=== PATIENT | female | born 1955 | race Caucasian/White ===

== ENCOUNTER 2018-05-06 13:16 | Inpatient (IN) ==
[2018-05-06] MEDS ORDERED: *HR* Heparin 5,000 UNIT/ML VIAL IVP ONE (16:16)
[2018-05-06] MEDS ORDERED: *HR* Heparin 5,000 UNIT/ML VIAL IVP PRN ×2 (16:16)
--- NOTE | 2018-05-06 16:23 | Emergency Department Note ---
Disposition Clinical Impression: DVT (deep venous thrombosis) Qualifiers: DVT location: lower extremity Affected thrombotic vein of extremity: femoral Chronicity: acute Laterality: left Qualified Code(s): I82.412 - Acute embolism and thrombosis of left femoral vein Disposition: Admitted As Inpatient Extremity Problem HPI - General Chief complaint: ED Extremity Problem,Nontraumatic Stated complaint: Possible DVT left leg Time Seen by Provider: 05/06/18 15:34 Source: patient Limitations: no limitations Nursing Notes Reviewed: Yes Vital Signs Reviewed: Yes - History of Present Illness HPI Narrative: Patient presents today for evaluation of swelling and pain in the left leg. She has appropriate previous history of DVTs. She had a DVT approximately 2 years ago that was treated with Cymbalta. She has been following with the hematology clinic and was told that she could come off this medicine. 2 weeks after coming off serology she developed another DVT which she has been on Coumadin and attempted bridge with Lovenox shots. Over last weekend she ran out of Lovenox shots and her insurance would no longer prescribe these. She was told that she was to continue with the Coumadin clinic. She follows with Coumadin clinic today and her INR was 1.5. Patient's leg symptoms started approximately 2 days ago with worsening pain and swelling. Patient's leg has swelling through the calf as well as the upper thigh. Mild associated erythema and tenderness to palpation along the deep vascular system. Neurovascularly intact distally. Patient likely does have a DVT. Further investigation with DVT study will be performed and disposition is pending. Pain Scale: 8 - Related Data Home Medications Medication Instructions Recorded Confirmed Oxybutynin Chloride [Ditropan Xl] 5 mg PO DAILY 07/16/16 05/06/18 Escitalopram [Lexapro] 20 mg PO DAILY 07/23/17 05/06/18 Losartan Potassium [Cozaar] 25 mg PO DAILY 07/23/17 05/06/18 Pantoprazole Sodium [Protonix] 40 mg PO DAILY 07/23/17 05/06/18 Pramipexole Di-HCl [Pramipexole 0.5 mg PO HS 05/06/18 05/06/18 Dihydrochloride] Turmeric Root Extract [Turmeric] 500 mg PO DAILY 05/06/18 05/06/18 Warfarin [Coumadin] 5 mg PO SUTUWETHFR 05/06/18 05/06/18 Warfarin [Coumadin] 7.5 mg PO MOSA 05/06/18 05/06/18 Allergies Allergy/AdvReac Type Severity Reaction Status Date / Time Sulfa (Sulfonamide AdvReac Nausea Verified 05/06/18 16:41 Antibiotics) Review of Systems: As Per HPI Constitutional: Denies: fever, chills Cardiovascular: Denies: chest pain, palpitations, dyspnea on exertion Respiratory: Denies: cough, dyspnea, wheezes Gastrointestinal: Denies: abdominal pain, nausea, vomiting Genitourinary: Denies: urgency, dysuria, frequency Musculoskeletal: Reports: other (Left leg pain) Integumentary: Reports: other (Swelling and erythema of the left leg) Neurological: Denies: headache, weakness Past Medical History - Past Medical History Medical history: Reports: arthritis, DVT, GERD, hypertension, osteoporosis, other Surgical history: Reports: appendectomy, cataract (Eye surgery. Cataract removal.), cholecystectomy, hysterectomy, orthopedic, other ( Flexible sigmoidoscopy. right carpal tunnel release. Left wrist endoscopic carpal tunnel release. Trigger finger release, thumb. Left thumb carpal metacarpal arthroplasty with flexor carpi radial suspension. 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 Distal dorsalis pedis and cap refill intact and symmetric bilaterally. Skin: See extremities left lower extremity otherwise normal without rash or abrasion or lesion. Psych: Appropriate mood and affect Neuro: Awake and alert - General Limitations: no limitations General appearance: alert, in no apparent distress Course - Reevaluation(s) Reevaluation #1: DVT study for both superficial and deep thrombus throughout the upper thigh including nonvisualization of the most proximal portion. Patient has no other symptoms in her lower extremity. No abdominal pain or chest pain or shortness of breath. Is not having palpitations. This point patient is subtherapeutic on her INR and is unable to obtain other anticoagulations for home use as insurance has previously denied these. She will be placed on a heparin drip and admitted to the hospital for further evaluation and management. - Consultations Consultation #1: Discussed with hospitalist. Patient accepted for admission. Vital Signs Temperature 98.3 F 05/06/18 13:18 Pulse Rate 81 05/06/18 13:18 Respiratory Rate 16 05/06/18 13:18 Blood Pressure 147/74 05/06/18 13:18 O2 Sat by Pulse Oximetry 94 05/06/18 13:18 Temperature 99.6 F 05/06/18 17:45 Pulse Rate 81 05/06/18 15:41 Respiratory Rate 16 05/06/18 17:45 Blood Pressure 150/77 05/06/18 17:45 O2 Sat by Pulse Oximetry 99 05/06/18 17:45 Oxygen Delivery Oxygen Delivery Room Air Extremity Problem, Nontraumati - Medical Records Medical records reviewed: Yes I reviewed the patient's medical records. - Lab Data Lab results reviewed: Yes I reviewed the patient's lab results. Result diagrams: 05/06/18 16:39 05/06/18 16:39 Lab Results 05/06/18 05/06/18 05/06/18 Range/Units 16:39 16:39 16:49 WBC 6.3 (4.3-11.1) K/mcL RBC 5.41 H (3.82-4.97) M/mcL Hgb 14.1 (11.5-15.4) g/dL Hct 45.0 H (35.3-44.9) % MCV 83.2 (83.0-100.0) fL MCH 26.1 L (28.0-33.3) pg MCHC 31.3 L (31.6-35.5) g/dL RDW 14.0 (11.5-14.5) % Plt Count 195 (140-400) K/mcL MPV 10.8 (9.4-12.4) fL PT 17.2 H (9.4-12.1) Seconds INR 1.5 APTT 34.7 (26.0-36.0) Seconds Heparin Anti-Xa, Unfract 0.09 L (0.30-0.70) IU/mL Sodium 138 (136-145) mEq/L Potassium 3.9 (3.5-5.1) mEq/L Chloride 106 (98-107) mEq/L Carbon Dioxide 23 (23-29) mEq/L BUN 15 (8-23) mg/dL Creatinine 0.78 (0.60-1.20) mg/dL Est GFR ( Amer) > 60 (> 60) Est GFR (Non-Af Amer) > 60 (> 60) BUN/Creatinine Ratio 19 (6-26) Glucose 96 (70-105) mg/dL Calculated Osmolality 287 (280-300) Calcium 9.9 (8.6-10.3) mg/dL Troponin I < 0.03 (< 0.04) ng/mL - EKG Data EKG attestation: Yes I reviewed and interpreted this EKG. EKG results narrative: Sinus rhythm with ventricular rate of 63. OR interval 172. QRS 79. QTC 384. Patient has no significant ST elevations or depressions. EKG unchanged from previous of 07/08/16
[2018-05-06 16:53] LABS: Hemoglobin 14.1 g/dL (11.5-15.4); Mean Corpuscular HGB Conc 31.3 g/dL (31.6-35.5); Mean Corpuscular Hemoglobin 26.1 pg (28.0-33.3); Mean Corpuscular Volume 83.2 fL (83.0-100.0); Mean Platelet Volume 10.8 fL (9.4-12.4); Platelet Count 195 K/mcL (140-400); Red Blood Count 5.41 M/mcL (3.82-4.97)
[2018-05-06 17:07] LABS: Activated Partial Thrombo Time 34.7 Seconds (26.0-36.0)
[2018-05-06] MEDS ORDERED: Naloxone 0.4 MG/ML INJ IVP PRN (17:11)
[2018-05-06 17:12] LABS: Heparin anti-factor XA UFH 0.09 IU/mL (0.30-0.70); INR 1.5; Prothrombin Time 17.2 Seconds (9.4-12.1)
[2018-05-06 17:17] LABS: BUN/Creatinine Ratio 19 (6-26); Blood Urea Nitrogen 15 mg/dL (8-23); Calcium 9.9 mg/dL (8.6-10.3); Carbon Dioxide 23 mEq/L (23-29); Chloride 106 mEq/L (98-107); Glucose 96 mg/dL (70-105); Osmolality,Calculated 287 (280-300); Potassium 3.9 mEq/L (3.5-5.1); Sodium 138 mEq/L (136-145); Troponin I < 0.03 ng/mL (< 0.04); eGFR For Non-African Americans > 60 (> 60)
--- NOTE | 2018-05-06 17:25 | Internal Med History&Physical ---
<Enma Rizo Negrita - Last Filed: 05/06/18 18:44> Date of Encounter: 05/06/18 Time of Encounter: 17:24 Internal Medicine - H&P: HPI Chief complaint: DT Left leg Admitted From: Home Plans for Post Hospital Care: Home History of present illness: Ms. Hernandez is a 63 year old female with history of dvt left leg, htn, and OA. The patient here today with swelling and pain in her left leg. The patient was taking lovenox and warfarin at home and it was discontinued on Wednesday by insurance denial. The patient has been worked up by hematology/oncology, in the past. Prior to that the patient was taking Xarelto. The Xarelto was stopped to trial the lovenox and warfarin. The lovenox and warfarin was never able to reach therapeutic levels and her provider tried to put her back on the Xarelto with no success with her insurance company. Today the patient noted an increase in swelling and thought she might have another clot. The ED found the patient to have a clot. Heparin drip was started due the patient INR of 1.5, subtherapeutic. I will consult with 7th grade social studies teacher regarding medication use and insurance. Past Med Surg Social Fam HX - Past Medical History Medical history: arthritis, DVT, GERD, hypertension, osteoporosis, other Psychiatric history: anxiety, depression - Past Surgical History Surgical History: appendectomy, cataract (Eye surgery. Cataract removal.), cholecystectomy, hysterectomy, orthopedic, other ( Flexible sigmoidoscopy. right carpal tunnel release. Left wrist endoscopic carpal tunnel release. Trigger finger release, thumb. Left thumb carpal metacarpal arthroplasty with flexor carpi radial suspension. ), other (Colonoscopy.) Additional surgical history: carpal tunnel surgeries x 2 - Social History Smoking Status: Never smoker Smokeless Tobacco Status: No Alcohol use: none Drug use: none - Family History Father Living Status: Hx Family Respiratory Disorders: Yes Mother Living Status: Hx Family Cardiac Disorders: Yes Hx Family Endocrine Disorder: Yes Hx Family Neurologic Disorders: Yes Internal Medicine - H&P: Meds Oxybutynin Chloride [Ditropan Xl] 5 mg PO DAILY 07/16/16 [History] Escitalopram [Lexapro] 20 mg PO DAILY 07/23/17 [History] Losartan Potassium [Cozaar] 25 mg PO DAILY 07/23/17 [History] Pantoprazole Sodium [Protonix] 40 mg PO DAILY 07/23/17 [History] Pramipexole Di-HCl [Pramipexole Dihydrochloride] 0.5 mg PO HS 05/06/18 [History] Turmeric Root Extract [Turmeric] 500 mg PO DAILY 05/06/18 [History] Warfarin [Coumadin] 5 mg PO SUTUWETHFR 05/06/18 [History] Warfarin [Coumadin] 7.5 mg PO MOSA 05/06/18 [History] 3 Allergy/AdvReac Type Severity Reaction Status Date / Time Sulfa (Sulfonamide AdvReac Nausea Verified 05/06/18 16:41 Antibiotics) All Systems PM: A 10-system review of systems was performed and is negative for pertinent findings except as documented above in the HPI. - Constitutional Constitutional: no chills, no fever(s), no night sweats - EENT Eyes: no change in vision, no discharge, no pain, no photophobia Ears: no ear discharge, no ear pain, no tinnitus Nose, mouth and throat: no dysphagia, no nasal discharge, no neck pain, no sore throat - Cardiovascular Cardiovascular ROS IM: no chest pain, no diaphoresis, no dyspnea, no lightheadedness, no palpitations, no syncope - Respiratory Respiratory: no cough, no dyspnea, no wheezing, no excessive phlegm production - Gastrointestinal Gastrointestinal: no abdominal pain, no diarrhea, no hematemesis, no hematochezia, no melena, no nausea, no vomiting - Genitourinary Genitourinary: no change in urinary stream, no dysuria, no flank pain, no hematuria - Musculoskeletal Musculoskeletal ROS IM: no numbness, no tingling - Integumentary Integumentary IM: other (Pale, left leg), no rash, no unusual bruising - Neurological Neurological ROS: no confusion, no convulsions, no focal weakness, no numbness, no tingling, no tremor(s) - Hematologic/Lymphatic Hematologic/Lymphatic: no easy bruising - Constitutional Vitals: Temp Pulse Resp BP Pulse Ox 98.3 F 81 16 147/74 94 05/06/18 15:41 05/06/18 15:41 05/06/18 15:41 05/06/18 15:41 05/06/18 15:41 General appearance: Present: A&O X 3, answers questions appropriately - Head Head exam: Present: atraumatic, normocephalic - Eye Eye exam: Present: PERRL, conjuntiva pink, sclera anicteric Pupils: Present: PERRL - Neck Neck exam general surgery: Present: supple, trachea midline. Absent: lymphadenopathy - Respiratory Respiratory exam: Present: CTAB. Absent: accessory muscle use, rales, rhonchi, wheezes - Cardiovascular Cardiovascular exam: Present: RRR, +S1, +S2. Absent: diastolic murmur, gallop, rubs, systolic murmur - GI/Abdominal GI/Abdominal exam: Present: normal bowel sounds, soft, no peritoneal signs. Absent: distended, tenderness - Extremities Exam Extremities exam: Present: normal capillary refill, pedal edema, tenderness ( Color splotchy), warm, radial pulses palpable and symmetrical. Absent: calf tenderness, cyanotic - Neurological Exam Neurological exam: Present: CN II-XII intact, oriented X3, no focal deficits. Absent: pronater drift, facial droop, speech deficit - Skin Skin exam: Present: dry, intact Internal Med - H&P Results - Labs CBC & Chem 7: 05/06/18 16:39 05/06/18 16:39 - Assessment and plan (1) DVT (deep venous thrombosis) Current Visit: Yes Status: Acute Assessment and plan: Heparin drip Circulation checks PT/INR with heparin protocol Qualifiers: DVT location: lower extremity Affected thrombotic vein of extremity: femoral Chronicity: acute Laterality: left Qualified Code(s): I82.412 - Acute embolism and thrombosis of left femoral vein (2) Hypertension Current Visit: No Status: Chronic Assessment and plan: Bp is controlled Continue home meds. Qualifiers: Hypertension type: essential hypertension Qualified Code(s): I10 - Essential (primary) hypertension (3) Osteoarthritis involving multiple joints on both sides of body Current Visit: No Status: Chronic Assessment and plan: Chronic disease. Will manage with home medications - Time Spent With Patient Total time spent is greater than 50% in coordination of care (as documented) at patient's floor/unit and/or counseling patient: <WillieRaheem - Last Filed: 05/06/18 18:52> Date of Encounter: 05/06/18 Internal Medicine - H&P: HPI History of present illness: Ms. Hernandez is a 63 year old female All Systems PM: A 10-system review of systems was performed and is negative for pertinent findings except as documented above in the HPI. - Constitutional Vitals: Temp Pulse Resp BP Pulse Ox 99.6 F 81 16 150/77 99 05/06/18 17:45 05/06/18 15:41 05/06/18 17:45 05/06/18 17:45 05/06/18 17:45 Internal Med - H&P Results - Labs CBC & Chem 7: 05/06/18 16:39 05/06/18 16:39 - Attending Attestation I have seen and examined the patient with Enma Rizo and agree with his/her assessment and plan. 63-year-old female with history of DVT presented with another episode of left leg swelling. Her history goes back 2 years when she was first diagnosed with DVT and was placed on xarelto initially. She was doing well so xarelto was d/brannon by hematology. Unfortunately she developed another episode of DVT while off on Xarelto therefore she was placed back on xarelto which insurance denied. Thereafter, she was placed on Lovenox and warfarin but Lovenox was also not covered by insurance and she had wide fluctuation off INR on warfarin. Exam shows diffusely swollen left-leg. DVT scan positive with large amount of clot burden all the way to femoral vein. She was placed on heparin drip which we will continue overnight. financial services education consultant consulted to navigate through the anticoagulation medication. Raheem Tapia MD - Time Spent With Patient Total time spent is greater than 50% in coordination of care (as documented) at patient's floor/unit and/or counseling patient:
[2018-05-06] MEDS ORDERED: *HR* FentaNYL (PF) 100 MCG/2 ML VIAL IVP ONE (17:27)
[2018-05-06] MEDS: Heparin 25,000 UNIT/500 ML D5W 25,000 UNIT/500 ML BAG IVC SCH (17:28)
[2018-05-06] MEDS ORDERED: Acetaminophen 325 MG TABLET PO PRN (23:26)
[2018-05-06] MEDS: *HR* HYDROcodone/Acet 5/325 mg TABLET PO PRN (23:49)
[2018-05-07 01:03] LABS: Basophils % 0.4 %; Eosinophils # 0.1 K/mcL (0.0-0.6); Eosinophils % 2.2 %; Immature Granulocytes % 0.2 % (0-4); Lymphocytes # 1.5 K/mcL (0.6-4.6); Lymphocytes % 30.1 %; Mean Corpuscular HGB Conc 31.9 g/dL (31.6-35.5); Mean Corpuscular Hemoglobin 26.2 pg (28.0-33.3); Mean Corpuscular Volume 82.2 fL (83.0-100.0); Mean Platelet Volume 10.7 fL (9.4-12.4); Monocytes # 0.6 K/mcL (0.0-1.3); Neutrophils # 2.9 K/mcL (1.6-8.9); Platelet Count 168 K/mcL (140-400); Red Cell Distribution Width 13.9 % (11.5-14.5); Segmented Neutrophils % 56.1 %
[2018-05-07 01:07] LABS: Hemoglobin 11.8 g/dL (11.5-15.4)
[2018-05-07 01:14] LABS: BUN/Creatinine Ratio 20 (6-26); Blood Urea Nitrogen 16 mg/dL (8-23); Calcium 9.1 mg/dL (8.6-10.3); Carbon Dioxide 24 mEq/L (23-29); Chloride 105 mEq/L (98-107); Glucose 136 mg/dL (70-105); Osmolality,Calculated 287 (280-300); Potassium 3.9 mEq/L (3.5-5.1); Sodium 137 mEq/L (136-145); eGFR For Non-African Americans > 60 (> 60)
[2018-05-07] MEDS: *HR* HYDROcodone/Acet 5/325 mg TABLET PO PRN ×2 (08:16→15:04)
[2018-05-07] MEDS: (Turmeric Root Extract [Turmeric] 500 MG) PO SCH (08:17)
--- NOTE | 2018-05-07 14:53 | Internal Med Progress Note ---
Date of Encounter: 05/07/18 Time of Encounter: 14:50 - Assessment and plan (1) Deep vein thrombosis (DVT) of iliac vein of left lower extremity Current Visit: No Status: Acute Assessment and plan: Seen in the left distal iliac, left common femoral, left superficial femoral and the left great saphenous above-knee on Doppler ultrasound. Patient has recurrent DVT. First episode 2 years back and general to was restarted. Patient has been following beater dumper who did a stop after completion of treatment but patient has second episode a few weeks later in the same lower extremity therefore considered to his start Lovenox and warfarin but insurance does not cover Lovenox and her INR was unstable on warfarin. Patient has third episodes newly diagnosed left lower extremity DVT and is thrombosis-IV heparin was restarted. Jose also discuss with beater dumper about further management Qualifiers: Chronicity: acute Qualified Code(s): I82.422 - Acute embolism and thrombosis of left iliac vein (2) Hypertension Current Visit: No Status: Chronic Assessment and plan: Stable. Continue home medicine Qualifiers: Hypertension type: essential hypertension Qualified Code(s): I10 - Essential (primary) hypertension (3) Obesity (BMI 30.0-34.9) Current Visit: No Status: Chronic Assessment and plan: Diet and exercise - Time Spent With Patient Total time spent is greater than 50% in coordination of care (as documented) at patient's floor/unit and/or counseling patient: - Subjective Interval history: No new complaint. Left leg pain better. Review the lab Patient denies fever chills nausea vomiting headache dizziness chest pain shortness of breath abdominal pain urinary bowel complaint - Constitutional Vitals: Temp Pulse Resp BP Pulse Ox 98.3 F 67 16 123/62 93 05/07/18 11:13 05/07/18 11:13 05/07/18 11:13 05/07/18 11:13 05/07/18 11:13 General appearance: Present: A&O X 3, answers questions appropriately Exam: General appearance: No acute distress, A&O X 3 Head exam: Atraumatic Eye exam: EOMI, PERRLA ENT exam: Moist oral mucosa Neck nontender, supple Respiratory exam: Clear to auscultation bilaterally Cardiovascular exam: Regular rate and rhythm, no systolic murmur Abdominal exam: Soft, nontender, nondistended, positive bowel sounds Extremities exam: Left lower extremity-Homans sign positive with mild swelling Skin-no rash, warm, dry, intact Neurological exam: Alert, awake, oriented 3, CN II-XII intact, no focal deficits. No facial droop. Normal speech. Internal Medicine: Result - Labs CBC & Chem 7: 05/07/18 00:42 05/07/18 00:42 Labs: Short CBC 05/07/18 Range/Units 00:42 WBC 5.1 (4.3-11.1) K/mcL Hgb 11.8 D (11.5-15.4) g/dL Hct 37.0 (35.3-44.9) % Plt Count 168 (140-400) K/mcL Neutrophils # 2.9 (1.6-8.9) K/mcL BMP 05/07/18 00:42 Sodium 137 Potassium 3.9 Chloride 105 Carbon Dioxide 24 BUN 16 Creatinine 0.81 Glucose 136 H Calcium 9.1 - ABG Interpretation ABG results: PT/INR, D-dimer PT 17.2 Seconds (9.4-12.1) H 05/06/18 16:49 Consult Discharge Plan - Plan Referrals: Cindy Lester, CREW LEADER/CONTROL ROOM OPERATOR [Primary Care Provider] -
[2018-05-07] MEDS: Heparin 25,000 UNIT/500 ML D5W 25,000 UNIT/500 ML BAG IVC SCH (17:17)
--- NOTE | 2018-05-07 17:23 | Oncology Inp Consult Note ---
Date of Encounter: 05/07/18 Time of Encounter: 15:00 Assessment and Plan (1) DVT (deep venous thrombosis) Status: Acute Assessment and plan: Patient has a diagnosis of deep venous thrombosis in the left distal iliac, common femoral superficial femoral, saphenous veins since March 2018, presented with swelling worsening pain, INR was 1.5, she started on intravenous heparin. Patient has high co-pays with newer anticoagulants, low monitor weight heparin which she has discontinued. Start patient on Coumadin continue heparin until INR therapeutic, outpatient discharge on Coumadin with a targeted INR of 2-2.5. Subsequently she can follow up with Coumadin clinic. Hypercoagulable workup performed before was negative, patient still needs to be on lifelong anti-coagulation, be discussed risk benefits of long-term antiplatelet coagulation with patient. Patient and her family, friends were discussed with double plan and they are agreeable. Qualifiers: DVT location: lower extremity Affected thrombotic vein of extremity: femoral Chronicity: acute Laterality: left Qualified Code(s): I82.412 - Acute embolism and thrombosis of left femoral vein - Data of Consult Requesting Physician: Raheem Tapia MD Primary Care Provider: Cindy Lester CNP - Consult Narrative Reason for consult: DVT recurrent left lower ext History of present illness: Ms. Hernandez is a 63 year old female who was initially on Xarelto for left lower extremity -iliac/femoral deep venous thrombosis, diagnosed and started on treatment outside at [facility], -06/26. She subsequently had a Doppler study in January 2018 that did not show blood clots, patient had difficulty with coverage hypercoagulable workup was negative that was done on anti-coagulation, patient decided to stop anticoagulation. On 03/28 she developed left lower ext swelling and pain--she was noted to have acute left iliac, common femoral and superficial femoral vein thrombosis. She did not have coverage for eliquis she was put on coumadin by coumadin clinic. Patient had a INR of 1.2, increased to 1.5, according to her Coumadin clinic was recommending her to stay on Lovenox, increase Coumadin slowly as she became supratherapeutic with an INR of 5 during this process. She however did not have any bleeding episodes at that time. She came to the ER 2017 with left lower extremity pain and swelling. Venous Doppler showed similar findings to March 2018 she has left distal iliac, common femoral superficial femoral vein thrombosis. She is started on heparin. Hematology consulted for recommendations regarding anticoagulation. She denies any shortness of breath she feels very fatigued. Review of systems is otherwise negative. Past Med Surg Social Fam HX - Past Medical History Medical history: arthritis, DVT, GERD, hypertension, osteoporosis, other Psychiatric history: anxiety, depression - Past Surgical History Surgical History: appendectomy, cataract (Eye surgery. Cataract removal.), cholecystectomy, hysterectomy, orthopedic, other ( Flexible sigmoidoscopy. right carpal tunnel release. Left wrist endoscopic carpal tunnel release. Trigger finger release, thumb. Left thumb carpal metacarpal arthroplasty with flexor carpi radial suspension. ), other (Colonoscopy.) Additional surgical history: carpal tunnel surgeries x 2 - Social History Smoking Status: Never smoker Smokeless Tobacco Status: No Alcohol use: none Drug use: none - Family History Father Living Status: Hx Family Respiratory Disorders: Yes Mother Living Status: Age at : 66 Cause of : stroke Hx Family Cardiac Disorders: Yes Hx Family Endocrine Disorder: Yes Hx Family Neurologic Disorders: Yes Medications and Allergies Oxybutynin Chloride [Ditropan Xl] 5 mg PO DAILY 07/16/16 [History] Escitalopram [Lexapro] 20 mg PO DAILY 07/23/17 [History] Losartan Potassium [Cozaar] 25 mg PO DAILY 07/23/17 [History] Pantoprazole Sodium [Protonix] 40 mg PO DAILY 07/23/17 [History] Pramipexole Di-HCl [Pramipexole Dihydrochloride] 0.5 mg PO HS 05/06/18 [History] Turmeric Root Extract [Turmeric] 500 mg PO DAILY 05/06/18 [History] Warfarin [Coumadin] 5 mg PO SUTUWETHFR 05/06/18 [History] Warfarin [Coumadin] 7.5 mg PO MOSA 05/06/18 [History] 3 Allergy/AdvReac Type Severity Reaction Status Date / Time Sulfa (Sulfonamide AdvReac Nausea Verified 05/06/18 16:41 Antibiotics) Review of systems: as in HPI Oncology - Exam - Constitutional Vitals: Temp Pulse Resp BP Pulse Ox 98.3 F 80 16 105/76 94 05/07/18 15:45 05/07/18 15:45 05/07/18 15:45 05/07/18 15:45 05/07/18 15:45 General appearance: no acute distress - Head Head exam: Present: atraumatic, normal inspection - Eye Eye exam: Present: sclera anicteric - ENT ENT exam: Present: normal oropharynx - Neck Neck exam: Present: full ROM - Respiratory Respiratory exam: Present: CTAB - Cardiovascular Cardiovascular exam: Present: +S1, +S2 - GI/Abdominal GI/Abdominal exam: Present: normal bowel sounds, soft - Extremities Exam Additional comments: left thigh min swelling. - Neurological Exam Neurological exam: Present: alert, CN II-XII intact, oriented X3, no focal deficits - Psychiatric Psychiatric exam: Present: normal affect Oncology - Results Labs: 3 05/07/18 05/07/18 05/07/18 07:48 00:42 00:42 WBC RBC Hgb Hct MCV MCH MCHC RDW Plt Count MPV Immature Gran % Seg Neutrophils % Lymphocytes % Monocytes % Eosinophils % Basophils % Neutrophils # Lymphocytes # Monocytes # Eosinophils # Basophils # Heparin Anti-Xa, Unfract 0.61 0.60 Sodium 137 Potassium 3.9 Chloride 105 Carbon Dioxide 24 BUN 16 Creatinine 0.81 Est GFR ( Amer) > 60 Est GFR (Non-Af Amer) > 60 BUN/Creatinine Ratio 20 Glucose 136 H Calculated Osmolality 287 Calcium 9.1 3 05/07/18 00:42 WBC 5.1 RBC 4.50 Hgb 11.8 D Hct 37.0 MCV 82.2 L MCH 26.2 L MCHC 31.9 RDW 13.9 Plt Count 168 MPV 10.7 Immature Gran % 0.2 Seg Neutrophils % 56.1 Lymphocytes % 30.1 Monocytes % 11.0 Eosinophils % 2.2 Basophils % 0.4 Neutrophils # 2.9 Lymphocytes # 1.5 Monocytes # 0.6 Eosinophils # 0.1 Basophils # 0.0 Heparin Anti-Xa, Unfract Sodium Potassium Chloride Carbon Dioxide BUN Creatinine Est GFR ( Amer) Est GFR (Non-Af Amer) BUN/Creatinine Ratio Glucose Calculated Osmolality Calcium Consult Discharge Plan - Plan Referrals: Cindy Lester, SEBD TEACHER [Primary Care Provider] -
[2018-05-08] MEDS: *HR* HYDROcodone/Acet 5/325 mg TABLET PO PRN ×2 (06:25→21:00)
[2018-05-08] MEDS: (Turmeric Root Extract [Turmeric] 500 MG) PO SCH (08:14)
[2018-05-08 08:28] LABS: Heparin anti-factor XA UFH 0.52 IU/mL (0.30-0.70); INR 1.2; Prothrombin Time 13.5 Seconds (9.4-12.1)
[2018-05-08] MEDS ORDERED: Ondansetron 4 MG/2 ML VIAL IVP PRN (11:21)
--- NOTE | 2018-05-08 15:00 | Internal Med Progress Note ---
Date of Encounter: 05/08/18 Time of Encounter: 14:57 - Assessment and plan (1) Deep vein thrombosis (DVT) of iliac vein of left lower extremity Current Visit: No Status: Acute Assessment and plan: Seen in the left distal iliac, left common femoral, left superficial femoral and the left great saphenous above-knee on Doppler ultrasound. Patient has recurrent DVT. First episode 2 years back and xarelto was started. Patient has been following lithographer apprentice who did a stop after completion of treatment but patient has second episode a few weeks later in the same lower extremity therefore considered to start Lovenox and warfarin but insurance does not cover Lovenox and her INR was unstable on warfarin. Patient has third episodes newly diagnosed left lower extremity DVT and is thrombosis-IV heparin was started. Consulted lithographer apprentice and discussed the further management plan and decided to his start on Coumadin 7.5 mg by mouth daily with daily INR while on IV heparin. As patient had insurance coverage for other anticoagulation medicine therefore decided to continue warfarin for now. Will also discuss with social worker health services tomorrow on Wednesday to help her out in better way. Qualifiers: Chronicity: acute Qualified Code(s): I82.422 - Acute embolism and thrombosis of left iliac vein (2) Hypertension Current Visit: No Status: Chronic Assessment and plan: Stable. Continue home medicine Qualifiers: Hypertension type: essential hypertension Qualified Code(s): I10 - Essential (primary) hypertension (3) Obesity (BMI 30.0-34.9) Current Visit: No Status: Chronic Assessment and plan: Diet and exercise - Time Spent With Patient Total time spent is greater than 50% in coordination of care (as documented) at patient's floor/unit and/or counseling patient: less than 15 minutes - Subjective Interval history: No new complaint. Left leg pain better. Review the lab with further low INR. Patient denies fever chills nausea vomiting headache dizziness chest pain shortness of breath abdominal pain urinary bowel complaint - Constitutional Vitals: Temp Pulse Resp BP Pulse Ox 98.3 F 61 16 115/71 94 05/08/18 10:54 05/08/18 10:54 05/08/18 10:54 05/08/18 10:54 05/08/18 10:54 General appearance: Present: A&O X 3, answers questions appropriately Exam: General appearance: No acute distress, A&O X 3 Head exam: Atraumatic Eye exam: EOMI, PERRLA ENT exam: Moist oral mucosa Neck nontender, supple Respiratory exam: Clear to auscultation bilaterally Cardiovascular exam: Regular rate and rhythm, no systolic murmur Abdominal exam: Soft, nontender, nondistended, positive bowel sounds Extremities exam: Calf tenderness. Skin-no rash, warm, dry, intact Neurological exam: Grossly intact Internal Medicine: Result - Labs CBC & Chem 7: 05/07/18 00:42 05/07/18 00:42 - ABG Interpretation ABG results: PT/INR, D-dimer PT 13.5 Seconds (9.4-12.1) H 05/08/18 07:57 Consult Discharge Plan - Plan Referrals: Cindy Lester CNP [Primary Care Provider] -
[2018-05-08] MEDS: Heparin 25,000 UNIT/500 ML D5W 25,000 UNIT/500 ML BAG IVC SCH (17:07)
[2018-05-08] MEDS ORDERED: *HR* Warfarin 7.5 MG TABLET PO SCH (18:00)
[2018-05-09 00:57] LABS: Basophils % 0.2 %; Eosinophils # 0.2 K/mcL (0.0-0.6); Eosinophils % 2.6 %; Hematocrit 36.8 % (35.3-44.9); Hemoglobin 11.8 g/dL (11.5-15.4); Immature Granulocytes % 0.3 % (0-4); Lymphocytes # 1.5 K/mcL (0.6-4.6); Lymphocytes % 25.3 %; Mean Corpuscular HGB Conc 32.1 g/dL (31.6-35.5); Mean Corpuscular Hemoglobin 26.5 pg (28.0-33.3); Mean Corpuscular Volume 82.5 fL (83.0-100.0); Mean Platelet Volume 11.2 fL (9.4-12.4); Monocytes # 0.7 K/mcL (0.0-1.3); Neutrophils # 3.7 K/mcL (1.6-8.9); Platelet Count 190 K/mcL (140-400); Red Blood Count 4.46 M/mcL (3.82-4.97); Red Cell Distribution Width 13.7 % (11.5-14.5); Segmented Neutrophils % 60.6 %
[2018-05-09 01:19] LABS: BUN/Creatinine Ratio 19 (6-26); Blood Urea Nitrogen 13 mg/dL (8-23); Carbon Dioxide 24 mEq/L (23-29); Chloride 105 mEq/L (98-107); Glucose 162 mg/dL (70-105); Osmolality,Calculated 286 (280-300); Potassium 3.8 mEq/L (3.5-5.1); Sodium 136 mEq/L (136-145); eGFR For Non-African Americans > 60 (> 60)
[2018-05-09 07:45] LABS: Heparin anti-factor XA UFH 0.44 IU/mL (0.30-0.70)
[2018-05-09] MEDS: (Turmeric Root Extract [Turmeric] 500 MG) PO SCH (08:13)
--- NOTE | 2018-05-09 08:45 | Internal Med Progress Note ---
Date of Encounter: 05/09/18 Time of Encounter: 08:43 - Assessment and plan (1) Deep vein thrombosis (DVT) of iliac vein of left lower extremity Current Visit: No Status: Acute Assessment and plan: Seen in the left distal iliac, left common femoral, left superficial femoral and the left great saphenous above-knee on Doppler ultrasound. Patient has recurrent DVT. First episode 2 years back and xarelto was started. Patient has been following tie sawyer who did a stop after completion of treatment but patient has second episode a few weeks later in the same lower extremity therefore considered to start Lovenox and warfarin but insurance does not cover Lovenox and her INR was unstable on warfarin. Patient has third episodes newly diagnosed left lower extremity DVT and is thrombosis-IV heparin was started. Consulted tie sawyer and discussed the further management plan and decided to his start on Coumadin 7.5 mg by mouth daily with daily INR while on IV heparin. As patient had insurance coverage problem for other anticoagulation medicine therefore decided to continue warfarin for now. Is still subtherapeutic INR therefore will continue IV heparin with adjusting Coumadin. Will also consult pharmacy. Will also discuss with case management social worker tomorrow today for the arrangement of anticoagulation medicine. Cloth Cutting Machine Operator's on board. Slight worsening of pain more like tightness and left knee with some swelling but that is expected with a recurrent DVT though I discuss with tie sawyer and we decided to continue same. Qualifiers: Chronicity: acute Qualified Code(s): I82.422 - Acute embolism and thrombosis of left iliac vein (2) Hypertension Current Visit: No Status: Chronic Assessment and plan: Continue home medicine. Close monitoring Qualifiers: Hypertension type: essential hypertension Qualified Code(s): I10 - Essential (primary) hypertension (3) Obesity (BMI 30.0-34.9) Current Visit: No Status: Chronic Assessment and plan: Diet and exercise - Time Spent With Patient 25 - 35 minutes - Subjective Interval history: Complaint of left knee pain with some swelling. Review the lab with bending INR today Patient denies fever chills nausea vomiting headache dizziness chest pain shortness of breath abdominal pain urinary bowel complaint - Constitutional Vitals: Temp Pulse Resp BP Pulse Ox 98.4 F 79 15 133/71 95 05/09/18 07:31 05/09/18 07:31 05/09/18 07:31 05/09/18 07:31 05/09/18 07:31 General appearance: Present: A&O X 3, answers questions appropriately Exam: General appearance: No acute distress, A&O X 3 Head exam: Atraumatic Eye exam: EOMI, PERRLA ENT exam: Moist oral mucosa Neck nontender, supple Respiratory exam: Clear to auscultation bilaterally Cardiovascular exam: Regular rate and rhythm, no systolic murmur Abdominal exam: Soft, nontender, nondistended, positive bowel sounds Extremities exam: Left lower extremity-tender calf muscle, there are in size compared to right lower extremity with swelling- Skin-no rash, warm, dry, intact Neurological exam: Alert, awake, oriented 3, CN II-XII intact, no focal deficits. No facial droop. Normal speech. Internal Medicine: Result - Labs CBC & Chem 7: 05/09/18 00:33 05/09/18 00:33 Labs: Short CBC 05/09/18 Range/Units 00:33 WBC 6.1 (4.3-11.1) K/mcL Hgb 11.8 (11.5-15.4) g/dL Hct 36.8 (35.3-44.9) % Plt Count 190 (140-400) K/mcL Neutrophils # 3.7 (1.6-8.9) K/mcL BMP 05/09/18 00:33 Sodium 136 Potassium 3.8 Chloride 105 Carbon Dioxide 24 BUN 13 Creatinine 0.69 Glucose 162 H Calcium 9.0 - ABG Interpretation ABG results: PT/INR, D-dimer PT 13.5 Seconds (9.4-12.1) H 05/08/18 07:57 Consult Discharge Plan - Plan Referrals: Cindy Lester SOW FARM MANAGER [Primary Care Provider] -
[2018-05-09] MEDS: *HR* HYDROcodone/Acet 5/325 mg TABLET PO PRN ×2 (11:21→19:27)
[2018-05-09 11:24] LABS: INR 1.2; Prothrombin Time 13.8 Seconds (9.4-12.1)
--- NOTE | 2018-05-09 15:30 | Oncology Inp Progress Note ---
Date of Encounter: 05/09/18 Time of Encounter: 13:00 (1) DVT (deep venous thrombosis) Current Visit: Yes Status: Acute Assessment and plan: Patient has a diagnosis of deep venous thrombosis in the left distal iliac, common femoral superficial femoral, saphenous veins since March 2018, presented with swelling worsening pain, INR was 1.5, she started on intravenous heparin. Patient has high co-pays with newer anticoagulants, low monitor weight heparin which she has discontinued. 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 INR- 1.2 today. Subsequently she can follow up with Coumadin clinic-high school social science teacher consulted for assistance with referral to coumadin clinic in [facility] to assist with transportation Prior hypercoagulable workup performed which was negative, patient still needs to be on lifelong anti-coagulation given her history. Ambulation as tolerated was also encouraged today. Qualifiers: DVT location: lower extremity Affected thrombotic vein of extremity: femoral Chronicity: acute Laterality: left Qualified Code(s): I82.412 - Acute embolism and thrombosis of left femoral vein Oncology: Subj Interval history: Ms. Hernandez is resting with family at bedside. She reports and improvement in her pain to left upper calf but continues to have aching pain to left knee. Overall, pain has improved since admission. The general course of recovery from DVT was discussed today. Encouraged ambulation as tolerated. She is hopeful for discharge soon and is frustrated with her recent issues in regards for coverage for her AC medication, words of encouragement provided. She denies SOB, chest pain, pain with inspiration or any s/s bleeding. - Constitutional Vitals: Vital Signs Temp Pulse Resp BP Pulse Ox 05/09/18 11:17 98.3 F 78 14 141/75 94 05/09/18 07:31 98.4 F 79 15 133/71 95 05/09/18 00:12 99.2 F 92 16 116/71 93 Intake and Output 05/08/18 05/09/18 05/09/18 23:59 07:59 15:59 Intake Total 686 / 686 Balance 686 / 686 Intake: IV Fluids 326 / 326 Heparin 25,000 UNIT/500 ML D5W 326 / 326 25,000 unit In 500 ml @ 14 UNIT /KG/HR 21.21 mls/hr IVC . [id number] JAMIR Rx#:[id number] Oral 360 / 360 Other: Meal Lunch Percent of Meal Consumed 35% # Voids 2 General appearance: cooperative, no acute distress, no febrile - Head Head exam: Present: atraumatic - ENT ENT exam: Present: mucous membranes moist - Respiratory Respiratory exam: Present: CTAB. Absent: respiratory distress - Cardiovascular Cardiovascular exam: Present: RRR, +S1, +S2 - GI/Abdominal GI/Abdominal exam: Present: normal bowel sounds, soft. Absent: tenderness - Extremities Exam Additional comments: mild edema noted to LLE, non pitting - Neurological Exam Neurological exam: Present: alert, oriented X3, no focal deficits, strengths equal and symetr throughout - Psychiatric Psychiatric exam: Present: normal affect, normal mood - Skin Skin exam: Present: dry, intact, normal color, warm Oncology: Obj Data - Labs CBC & Chem 7: 05/09/18 00:33 05/09/18 00:33 Labs: Laboratory Results - last 24 hr 05/09/18 05/09/18 05/09/18 00:33 00:33 07:23 WBC 6.1 RBC 4.46 Hgb 11.8 Hct 36.8 MCV 82.5 L MCH 26.5 L MCHC 32.1 RDW 13.7 Plt Count 190 MPV 11.2 Immature Gran % 0.3 Seg Neutrophils % 60.6 Lymphocytes % 25.3 Monocytes % 11.0 Eosinophils % 2.6 Basophils % 0.2 Neutrophils # 3.7 Lymphocytes # 1.5 Monocytes # 0.7 Eosinophils # 0.2 Basophils # 0.0 PT 13.8 H INR 1.2 Heparin Anti-Xa, Unfract 0.44 Sodium 136 Potassium 3.8 Chloride 105 Carbon Dioxide 24 BUN 13 Creatinine 0.69 Est GFR ( Amer) > 60 Est GFR (Non-Af Amer) > 60 BUN/Creatinine Ratio 19 Glucose 162 H Calculated Osmolality 286 Calcium 9.0 - ABG Interpretation ABG results: PT/INR, D-dimer PT 13.8 Seconds (9.4-12.1) H 05/09/18 07:23 Consult Discharge Plan - Plan Referrals: Cindy Lester SET UP MECHANIC CROWN ASSEMBLY MACHINE [Primary Care Provider] -
[2018-05-09] MEDS: Heparin 25,000 UNIT/500 ML D5W 25,000 UNIT/500 ML BAG IVC SCH (17:19)
--- NOTE | 2018-05-09 17:48 | Electrocardiograph Report ---
[address] [address] Test Date: 2018-05-06 Pat Name: Sai Hernandez Department: 103 Room: [facility] Gender: F Marble Polisher: JOHN : 1955 Requested By: [id number] Order Number: [id number] Reading MD: Shira Shafer Measurements Intervals [place] Rate: 63 P: 63 MT: 172 QRS: 21 QRSD: 79 T: 48 QT: 376 QTc: 384 Interpretive Statements SINUS RHYTHM LOW QRS VOLTAGE IN PRECORDIAL LEADS [QRS DEFLECTION < 1.0 mV IN CHEST LEADS] Electronically Signed On 05-09-2018 17:47:30 EDT by Shira Shafer
[2018-05-09] MEDS ORDERED: Warfarin perPT PO PRN (18:00)
[2018-05-09] MEDS ORDERED: *HR* Warfarin 7.5 MG TABLET PO ONE (18:00)
[2018-05-10] MEDS: (Turmeric Root Extract [Turmeric] 500 MG) PO SCH (07:30)
[2018-05-10 07:45] LABS: INR 1.4; Prothrombin Time 15.4 Seconds (9.4-12.1)
[2018-05-10] MEDS: *HR* HYDROcodone/Acet 5/325 mg TABLET PO PRN ×2 (08:11→17:21)
--- NOTE | 2018-05-10 10:11 | Internal Med Progress Note ---
Hospitalist Progress Note - Encounter Date of Encounter: 05/10/18 Time of Encounter: 10:05 - Subjective Interval History: Complaint of left knee pain with some swelling. Review the lab with bending INR today Patient denies fever chills headache dizziness chest pain shortness of breath - Exam Vitals: Temp Pulse Resp BP Pulse Ox 99.6 F 86 14 109/71 96 05/10/18 07:19 05/10/18 07:19 05/10/18 07:19 05/10/18 07:19 05/10/18 07:19 Exam: General appearance: No acute distress, A&O X 3 Respiratory exam: Clear to auscultation bilaterally Cardiovascular exam: Regular rate and rhythm, no systolic murmur Abdominal exam: Soft, nontender, nondistended, positive bowel sounds Extremities exam: Left lower extremity-tender calf muscle- bigger in size compared to right lower extremity with swelling- Neurological exam: Grossly intact - Assessment and Plan (1) Deep vein thrombosis (DVT) of iliac vein of left lower extremity Current Visit: No Status: Acute Assessment and Plan: Multiple recurrent DVT in outpatient treatment failure recommended heparin drip brace to Coumadin until INR therapeutic. Plan to discharge patient on Coumadin with a targeted INR of 2-2.5. INR today 1.4 . Seen in the left distal iliac, left common femoral, left superficial femoral and the left great saphenous above-knee on Doppler ultrasound. Patient has recurrent DVT. First episode 2 years back and xarelto was started. Patient has been following tile conduit layer who did a stop after completion of treatment but patient has second episode a few weeks later in the same lower extremity therefore considered to start Lovenox and warfarin but insurance does not cover Lovenox and her INR was unstable on warfarin. Patient has third episodes newly diagnosed left lower extremity DVT and is thrombosis-IV heparin was started. pack worker on board for discharge plan. (2) Hypertension Current Visit: No Status: Chronic Assessment and Plan: Low blood pressure therefore will decrease the dose of losartan. (3) Obesity (BMI 30.0-34.9) Current Visit: No Status: Chronic Assessment and Plan: Diet and exercise - Time Spent with Patient Total time spent is greater than 50% in coordination of care (as documented) at patient's floor/unit and/or counseling patient: less than 15 minutes Internal Medicine: Result - Labs CBC & Chem 7: 05/09/18 00:33 07/30/18 00:33 - ABG Interpretation ABG results: PT/INR, D-dimer PT 15.4 Seconds (9.4-12.1) H 05/10/18 07:27 Consult Discharge Plan - Plan Referrals: Cindy Lester, EMAIL MARKETING MANAGER [Primary Care Provider] - (1) Deep vein thrombosis (DVT) of iliac vein of left lower extremity Qualifiers: Chronicity: acute Qualified Code(s): I82.422 - Acute embolism and thrombosis of left iliac vein (2) Hypertension Qualifiers: Hypertension type: essential hypertension Qualified Code(s): I10 - Essential (primary) hypertension
--- NOTE | 2018-05-10 13:18 | Oncology Inp Progress Note ---
Date of Encounter: 05/10/18 Time of Encounter: 11:25 (1) DVT (deep venous thrombosis) Current Visit: Yes Status: Acute Assessment and plan: Patient has a diagnosis of deep venous thrombosis in the left distal iliac, common femoral superficial femoral, saphenous veins since March 2018, presented with swelling worsening pain, INR was 1.5, she started on intravenous heparin. Due to high co-pays and insurance coverage, coupled with a difficulty in achieving adequate INR, past treatment has had some difficulty. 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 INR- 1.4 today. Coumadin dosing per inpatient pharmacy. Subsequently she can follow up with Coumadin clinic-administrative services specialist consulted for assistance with referral to coumadin clinic in [facility] to assist with transportation Prior hypercoagulable workup performed which was negative, patient still needs to be on lifelong anti-coagulation given her history. Qualifiers: DVT location: lower extremity Affected thrombotic vein of extremity: femoral Chronicity: acute Laterality: left Qualified Code(s): I82.412 - Acute embolism and thrombosis of left femoral vein Oncology: Subj Interval history: Ms. Hernandez is resting comfortably, working on [employer] project, she denies chest pain, SOB, pain with inspiration or any s/s bleeding. She reports that her pain to her left popliteal area is stable since yesterday, however, still present but no worse. She is eager to go home, we again discussed the need to continue heparin gtt as recommended per Dr. Christopher given her history and issues with achieving therapeutic range, patient voices understanding. She has been ambulating in room without assistance, encouraged continued activity. - Constitutional Vitals: Vital Signs Temp Pulse Resp BP Pulse Ox 05/10/18 07:19 99.6 F 86 14 109/71 96 05/10/18 03:01 98.8 F 87 16 124/79 93 05/09/18 22:29 99.4 F 75 16 112/73 95 05/09/18 19:15 98.7 F 91 16 128/71 95 05/09/18 16:41 99.2 F 69 14 128/78 93 Intake and Output 05/09/18 05/10/18 05/10/18 23:59 07:59 15:59 Intake Total 584 / 584 50 / 50 570 / 570 Output Total 500 / 500 Balance 84 / 84 50 / 50 570 / 570 Intake: IV Fluids 174 / 174 330 / 330 Heparin 25,000 UNIT/500 ML D5W 174 / 174 330 / 330 25,000 unit In 500 ml @ 14 UNIT /KG/HR 21.21 mls/hr IVC . [id number] JAMIR Rx#:[id number] Oral 410 / 410 50 / 50 240 / 240 Output: Urine 500 / 500 Other: Meal Dinner Breakfast Percent of Meal Consumed 85% 60% # Voids 1 General appearance: cooperative, no acute distress, no febrile - Head Head exam: Present: atraumatic - Respiratory Respiratory exam: Present: CTAB. Absent: respiratory distress - Cardiovascular Cardiovascular exam: Present: RRR, +S1, +S2 - GI/Abdominal GI/Abdominal exam: Present: normal bowel sounds, soft. Absent: tenderness - Extremities Exam Extremities exam: Absent: calf tenderness Additional comments: mild edema to LLE - Neurological Exam Neurological exam: Present: alert, oriented X3, no focal deficits, strengths equal and symetr throughout - Psychiatric Psychiatric exam: Present: normal affect, normal mood - Skin Skin exam: Present: dry, intact, normal color, warm Oncology: Obj Data - Labs CBC & Chem 7: 05/09/18 00:33 05/09/18 00:33 Labs: Laboratory Results - last 24 hr 05/10/1818 07:27 07:27 PT 15.4 H INR 1.4 Heparin Anti-Xa, Unfract 0.38 - ABG Interpretation ABG results: PT/INR, D-dimer PT 15.4 Seconds (9.4-12.1) H 05/10/18 07:27 Consult Discharge Plan - Plan Referrals: Cindy Lester, TAX REVENUE OFFICER [Primary Care Provider] -
[2018-05-10] MEDS: Heparin 25,000 UNIT/500 ML D5W 25,000 UNIT/500 ML BAG IVC SCH (15:04)
[2018-05-10] MEDS: *HR* Warfarin 7.5 MG TABLET PO SCH (17:19)
[2018-05-11 01:22] LABS: Basophils % 0.3 %; Eosinophils # 0.1 K/mcL (0.0-0.6); Eosinophils % 2.1 %; Hematocrit 36.2 % (35.3-44.9); Hemoglobin 11.7 g/dL (11.5-15.4); Immature Granulocytes % 0.3 % (0-4); Lymphocytes # 1.7 K/mcL (0.6-4.6); Lymphocytes % 29.1 %; Mean Corpuscular HGB Conc 32.3 g/dL (31.6-35.5); Mean Corpuscular Hemoglobin 26.7 pg (28.0-33.3); Mean Corpuscular Volume 82.5 fL (83.0-100.0); Mean Platelet Volume 11.1 fL (9.4-12.4); Monocytes # 0.7 K/mcL (0.0-1.3); Monocytes % 11.1 %; Neutrophils # 3.3 K/mcL (1.6-8.9); Platelet Count 172 K/mcL (140-400); Red Blood Count 4.39 M/mcL (3.82-4.97); Red Cell Distribution Width 13.5 % (11.5-14.5); Segmented Neutrophils % 57.1 %
[2018-05-11 01:39] LABS: BUN/Creatinine Ratio 15 (6-26); Blood Urea Nitrogen 11 mg/dL (8-23); Calcium 9.3 mg/dL (8.6-10.3); Carbon Dioxide 28 mEq/L (23-29); Chloride 103 mEq/L (98-107); Glucose 152 mg/dL (70-105); Osmolality,Calculated 286 (280-300); Potassium 4.4 mEq/L (3.5-5.1); Sodium 137 mEq/L (136-145); eGFR For Non-African Americans > 60 (> 60)
[2018-05-11 01:42] LABS: INR 1.5; Prothrombin Time 16.7 Seconds (9.4-12.1)
[2018-05-11] MEDS: *HR* HYDROcodone/Acet 5/325 mg TABLET PO PRN ×3 (03:48→20:14)
--- NOTE | 2018-05-11 09:26 | Internal Med Progress Note ---
Hospitalist Progress Note - Encounter Date of Encounter: 05/11/18 Time of Encounter: 09:24 - Subjective Interval History: Better left knee pain with some swelling. Review the lab last INR 1.5 Patient denies fever chills headache dizziness chest pain shortness of breath - Exam Vitals: Temp Pulse Resp BP Pulse Ox 98.5 F 76 16 107/68 96 05/11/18 06:59 05/11/18 06:59 05/11/18 06:59 05/11/18 06:59 05/11/18 06:59 Exam: General appearance: No acute distress, A&O X 3 Respiratory exam: Clear to auscultation bilaterally Cardiovascular exam: Regular rate and rhythm, no systolic murmur Abdominal exam: Soft, nontender, nondistended, positive bowel sounds Extremities exam: Left lower extremity-decreased tender calf muscle- bigger in size compared to right lower extremity with swelling-stable. 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 Plan to discharge patient on Coumadin with a targeted INR of 2-2.5. INR today 1.5. Discuss possible discharge plan with hematology team to discharge patient on subcutaneous Lovenox while on Coumadin but it was referred to treat her inpatient due to outpatient treatment failure or and other social and insurance issues going on. I discussed the plan with patient as well. Seen in the left distal iliac, left common femoral, left superficial femoral and the left great saphenous above-knee on Doppler ultrasound. Patient has recurrent DVT. First episode 2 years back and xarelto was started. Patient has been following curator horticultural museum who did a stop after completion of treatment but patient has second episode a few weeks later in the same lower extremity therefore considered to start Lovenox and warfarin but insurance does not cover Lovenox and her INR was unstable on warfarin. Patient has third episodes newly diagnosed left lower extremity DVT and is thrombosis-IV heparin was started. broom worker on board for discharge plan. (2) Hypertension Current Visit: No Status: Chronic Assessment and Plan: Low blood pressure therefore stopped the dose of losartan. (3) Obesity (BMI 30.0-34.9) Current Visit: No Status: Chronic Assessment and Plan: Diet and exercise - Time Spent with Patient Total time spent is greater than 50% in coordination of care (as documented) at patient's floor/unit and/or counseling patient: less than 15 minutes Internal Medicine: Result - Labs CBC & Chem 7: 05/11/18 01:00 05/11/18 01:00 Labs: Short CBC 05/11/18 Range/Units 01:00 WBC 5.8 (4.3-11.1) K/mcL Hgb 11.7 (11.5-15.4) g/dL Hct 36.2 (35.3-44.9) % Plt Count 172 (140-400) K/mcL Neutrophils # 3.3 (1.6-8.9) K/mcL BMP 05/11/18 01:00 Sodium 137 Potassium 4.4 Chloride 103 Carbon Dioxide 28 BUN 11 Creatinine 0.74 Glucose 152 H Calcium 9.3 - ABG Interpretation ABG results: PT/INR, D-dimer PT 16.7 Seconds (9.4-12.1) H 05/11/18 01:00 Consult Discharge Plan - Plan Referrals: Cindy Lester, ELECTRIC MOTOR REPAIRMAN [Primary Care Provider] - (1) Deep vein thrombosis (DVT) of iliac vein of left lower extremity Qualifiers: Chronicity: acute Qualified Code(s): I82.422 - Acute embolism and thrombosis of left iliac vein (2) Hypertension Qualifiers: Hypertension type: essential hypertension Qualified Code(s): I10 - Essential (primary) hypertension
--- NOTE | 2018-05-11 13:19 | Oncology Inp Progress Note ---
Date of Encounter: 05/11/18 Time of Encounter: 12:00 (1) DVT (deep venous thrombosis) Current Visit: Yes Status: Acute Assessment and plan: Patient has a diagnosis of deep venous thrombosis in the left distal iliac, common femoral superficial femoral, saphenous veins since March 2018, presented with swelling worsening pain, INR was 1.5, she started on intravenous heparin. Due to high co-pays and insurance coverage, coupled with a difficulty in achieving adequate INR, past treatment has had some difficulty. 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 INR- 1.5 today. Coumadin dosing per inpatient pharmacy. Subsequently she can follow up with Coumadin clinic-social services designee consulted for assistance with referral to coumadin clinic in [facility] to assist with transportation Prior hypercoagulable workup performed which was negative, patient still needs to be on lifelong anti-coagulation given her history. Plan: Continue with daily INR and heparin bridge with coumadin dosing per pharmacy Qualifiers: DVT location: lower extremity Affected thrombotic vein of extremity: femoral Chronicity: acute Laterality: left Qualified Code(s): I82.412 - Acute embolism and thrombosis of left femoral vein Oncology: Subj Interval history: Ms. Hernandez reports an improvement within her left knee pain today. She has been up and ambulating in room and down hallways as I encouraged her to do yesterday. She denies any s/s bleeding. She denies chest pain, SOB or pain with inspiration. - Constitutional Vitals: Vital Signs Temp Pulse Resp BP Pulse Ox 05/11/18 10:00 98.2 F 83 16 109/64 98 05/11/18 06:59 98.5 F 76 16 107/68 96 05/11/18 02:42 98.8 F 73 16 105/67 95 05/10/18 23:00 98.4 F 76 18 122/82 95 05/10/18 20:24 98.7 F 05/10/18 18:59 99.3 F 83 15 135/61 95 05/10/18 16:29 99.0 F 77 15 107/65 94 Intake and Output 05/10/18 05/11/18 05/11/18 23:59 07:59 15:59 Intake Total 290 / 290 50 / 50 478 / 478 Output Total 1600 / 1600 Balance -1310 / -1310 50 / 50 478 / 478 Intake: IV Fluids 238 / 238 Heparin 25,000 UNIT/500 ML D5W 238 / 238 25,000 unit In 500 ml @ 14 UNIT /KG/HR 21.21 mls/hr IVC . [id number] JAMIR Rx#:[id number] Oral 290 / 290 50 / 50 240 / 240 Output: Urine 1600 / 1600 Other: Meal Dinner Breakfast Percent of Meal Consumed 100% 100% # Voids 1 Weight 78 kg General appearance: cooperative, no acute distress, no febrile - Head Head exam: Present: atraumatic - ENT ENT exam: Present: mucous membranes moist - Respiratory Respiratory exam: Present: CTAB. Absent: respiratory distress - Cardiovascular Cardiovascular exam: Present: RRR, +S1, +S2 - GI/Abdominal GI/Abdominal exam: Present: normal bowel sounds, soft. Absent: guarding, rebound, tenderness - Extremities Exam Additional comments: mild LLE edema, left popliteal tenderness improving - Neurological Exam Neurological exam: Present: alert, oriented X3, no focal deficits, strengths equal and symetr throughout - Skin Skin exam: Present: dry, intact, normal color, warm Oncology: Obj Data - Labs CBC & Chem 7: 05/11/18 01:00 05/11/18 01:00 - ABG Interpretation ABG results: PT/INR, D-dimer PT 16.7 Seconds (9.4-12.1) H 05/11/18 01:00 Consult Discharge Plan - Plan Referrals: Cindy Lester CNP [Primary Care Provider] -
[2018-05-11] MEDS: Heparin 25,000 UNIT/500 ML D5W 25,000 UNIT/500 ML BAG IVC SCH (16:03)
[2018-05-11] MEDS: *HR* Warfarin 7.5 MG TABLET PO SCH (18:12)
[2018-05-12 01:21] LABS: INR 1.8; Prothrombin Time 20.5 Seconds (9.4-12.1)
--- NOTE | 2018-05-12 11:01 | Internal Med Progress Note ---
Hospitalist Progress Note - Encounter Date of Encounter: 05/12/18 Time of Encounter: 10:54 - Subjective Interval History: Better left knee pain with some swelling. c/o back spasm mild. Review the lab last INR 1.8 Patient denies fever chills headache dizziness chest pain shortness of breath - Exam Vitals: Temp Pulse Resp BP Pulse Ox 99.0 F 79 16 134/83 96 05/12/18 08:02 05/12/18 08:02 05/12/18 08:02 05/12/18 08:02 05/12/18 08:02 Exam: General appearance: No acute distress, A&O X 3 Respiratory exam: Clear to auscultation bilaterally Cardiovascular exam: Regular rate and rhythm, no systolic murmur Abdominal exam: Soft, nontender, nondistended, positive bowel sounds Extremities exam: Left lower extremity-decreased tender calf muscle- bigger in size compared to right lower extremity with swelling-stable. 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 Plan to discharge patient on Coumadin with a targeted INR of 2-2.5. INR today 1.8. Possible discharge tomorrow if INR equal or more than 2. Seen in the left distal iliac, left common femoral, left superficial femoral and the left great saphenous above-knee on Doppler ultrasound. Patient has recurrent DVT. First episode 2 years back and xarelto was started. Patient has been following photography coordinator who did a stop after completion of treatment but patient has second episode a few weeks later in the same lower extremity therefore considered to start Lovenox and warfarin but insurance does not cover Lovenox and her INR was unstable on warfarin. Patient has third episodes newly diagnosed left lower extremity DVT and is thrombosis-IV heparin was started. supply service worker on board for discharge plan. Low back pain most likely muscle spasm-started muscle relaxant as needed (2) Hypertension Current Visit: No Status: Chronic Assessment and Plan: Better blood pressure now. Earlier Low blood pressure even on low dose of losartan therefore stopped the dose of losartan. Continue to monitor BP (3) Obesity (BMI 30.0-34.9) Current Visit: No Status: Chronic Assessment and Plan: Diet and exercise. life style modification. - Time Spent with Patient Total time spent is greater than 50% in coordination of care (as documented) at patient's floor/unit and/or counseling patient: less than 15 minutes Internal Medicine: Result - Labs CBC & Chem 7: 05/11/18 01:00 05/11/18 01:00 - ABG Interpretation ABG results: PT/INR, D-dimer PT 20.5 Seconds (9.4-12.1) H 05/12/18 00:56 Consult Discharge Plan - Plan Referrals: Cindy Lester, BRIM BLOCKER [Primary Care Provider] - (1) Deep vein thrombosis (DVT) of iliac vein of left lower extremity Qualifiers: Chronicity: acute Qualified Code(s): I82.422 - Acute embolism and thrombosis of left iliac vein (2) Hypertension Qualifiers: Hypertension type: essential hypertension Qualified Code(s): I10 - Essential (primary) hypertension
[2018-05-12] MEDS: Heparin 25,000 UNIT/500 ML D5W 25,000 UNIT/500 ML BAG IVC SCH (17:44)
[2018-05-12] MEDS ORDERED: *HR* Warfarin 4 MG TABLET PO ONE (18:00)
[2018-05-12] MEDS: *HR* HYDROcodone/Acet 5/325 mg TABLET PO PRN (20:42)
[2018-05-13] MEDS: *HR* HYDROcodone/Acet 5/325 mg TABLET PO PRN ×2 (06:22→17:19)
[2018-05-13 06:29] LABS: Prothrombin Time 22.6 Seconds (9.4-12.1)
[2018-05-13] MEDS: Heparin 25,000 UNIT/500 ML D5W 25,000 UNIT/500 ML BAG IVC SCH (13:02)
--- NOTE | 2018-05-13 13:37 | Oncology Inp Progress Note ---
Date of Encounter: 05/13/18 Time of Encounter: 11:00 (1) DVT (deep venous thrombosis) Current Visit: Yes Status: Acute Assessment and plan: Patient has a diagnosis of deep venous thrombosis in the left distal iliac, common femoral superficial femoral, saphenous veins since March 2018, presented with swelling worsening pain, INR was 1.5, she started on intravenous heparin. Due to high co-pays and insurance coverage, coupled with a difficulty in achieving adequate INR, past treatment proved to be difficult. Secondary to recurrent DVT, outpatient treatment failure and difficulty with obtaining therapeutic INR range, recommend heparin gtt bridge to coumadin until INR therapeutic, outpatient discharge on Coumadin with a targeted INR of 2-2.5. Prior hypercoagulable workup performed which was negative, patient still needs to be on lifelong anti-coagulation given her history. Plan: INR 2 today. Due to high risk status, patient needs to obtain 2 therapeutic INR' s prior to discharge. Continue Heparin bridge with INR check tomorrow. Continue with daily INR and heparin bridge with coumadin dosing per pharmacy. If discharged over weekend,patient has appointment with coumadin clinic on Wednesday 05/16 Patient already has follow up arranged with hematology clinic-Dr. Christopher Qualifiers: DVT location: lower extremity Affected thrombotic vein of extremity: femoral Chronicity: acute Laterality: left Qualified Code(s): I82.412 - Acute embolism and thrombosis of left femoral vein Oncology: Subj Interval history: Ms. Hernandez was seen and examined at bedside. She reports that her pain to her left knee/groin has mostly resolved. She denies chest pain/pressure, SOB or pain with inspiration. She has been ambulating often and without difficulty - Constitutional Vitals: Vital Signs Temp Pulse Resp BP Pulse Ox 05/13/18 10:49 97.8 F 73 16 110/72 96 05/13/18 07:40 98.2 F 69 16 119/61 91 05/13/18 05:11 98.7 F 65 16 104/66 95 05/13/18 01:16 98.0 F 73 15 113/71 94 05/12/18 21:50 98.2 F 80 15 126/68 96 05/12/18 16:13 98.2 F 79 17 113/72 95 Intake and Output 05/12/18 05/13/18 05/13/18 23:59 07:59 15:59 Intake Total 190 / 190 670 / 670 Balance 190 / 190 670 / 670 Intake: IV Fluids 190 / 190 310 / 310 Heparin 25,000 UNIT/500 ML D5W 190 / 190 310 / 310 25,000 unit In 500 ml @ 14 UNIT /KG/HR 21.21 mls/hr IVC . [id number] JAMIR Rx#:[id number] Oral 360 / 360 Other: Meal Breakfast Percent of Meal Consumed 100% # Voids 1 1 Weight 81.2 kg Patient Weight 05/13/18 23:59 Weight 81.2 kg General appearance: cooperative, no acute distress, no febrile - Head Head exam: Present: atraumatic - Respiratory Respiratory exam: Present: CTAB. Absent: respiratory distress - Cardiovascular Cardiovascular exam: Present: RRR, +S1, +S2 - GI/Abdominal GI/Abdominal exam: Present: normal bowel sounds, soft. Absent: guarding, rebound, tenderness - Extremities Exam Additional comments: slight LLE edema, non pitting - Neurological Exam Neurological exam: Present: alert, oriented X3, no focal deficits, strengths equal and symetr throughout - Skin Skin exam: Present: dry, intact, normal color, warm Oncology: Obj Data - Labs CBC & Chem 7: 05/11/18 01:00 05/11/18 01:00 Labs: Laboratory Results - last 24 hr 05/12/18 05/12/18 05/13/18 17:18 22:33 06:08 PT 22.6 H INR 2.0 Heparin Anti-Xa, Unfract 0.45 0.31 - ABG Interpretation ABG results: PT/INR, D-dimer PT 22.6 Seconds (9.4-12.1) H 05/13/18 06:08 Consult Discharge Plan - Plan Referrals: Cindy Lester, LAWN AND GARDEN TECHNICIAN [Primary Care Provider] -
--- NOTE | 2018-05-13 16:52 | Internal Med Progress Note ---
Hospitalist Progress Note - Encounter Date of Encounter: 05/13/18 Time of Encounter: 16:49 - Subjective Interval History: Better back spasm. 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 Plan to discharge patient on Coumadin with a targeted INR of 2-3. INR today 2.0. Possible discharge tomorrow if INR equal or more than 2. Seen in the left distal iliac, left common femoral, left superficial femoral and the left great saphenous above-knee on Doppler ultrasound. Patient has recurrent DVT. First episode 2 years back and xarelto was started. Patient has been following excavator backhoe operator who did a stop after completion of treatment but patient has second episode a few weeks later in the same lower extremity therefore considered to start Lovenox and warfarin but insurance does not cover Lovenox and her INR was unstable on warfarin. Patient has third episodes newly diagnosed left lower extremity DVT and is thrombosis-IV heparin was started. terminal worker on board for discharge plan. Due to high risk status, patient needs to obtain 2 therapeutic INR's as recommended by pharmacy also prior to discharge and also peripheral choice to hematology. Continue Heparin bridge with INR check tomorrow. Plan to discharge tomorrow based on INR report. Patient has appointment with Coumadin clinic at [place] on 05/16/2018. Follow-up has been arranged with hematology clinic as well. (2) Hypertension Current Visit: No Status: Chronic Assessment and Plan: Better blood pressure now. Earlier Low blood pressure even on low dose of losartan therefore stopped the dose of losartan. Continue to monitor BP (3) Obesity (BMI 30.0-34.9) Current Visit: No Status: Chronic - Time Spent with Patient Total time spent is greater than 50% in coordination of care (as documented) at patient's floor/unit and/or counseling patient: less than 15 minutes Internal Medicine: Result - Labs CBC & Chem 7: 05/11/18 01:00 05/11/18 01:00 - ABG Interpretation ABG results: PT/INR, D-dimer PT 22.6 Seconds (9.4-12.1) H 05/13/18 06:08 Consult Discharge Plan - Plan Referrals: Cindy Lester, [employer] MEMBERSHIP SALES AGENT [Primary Care Provider] - (1) Deep vein thrombosis (DVT) of iliac vein of left lower extremity Qualifiers: Chronicity: acute Qualified Code(s): I82.422 - Acute embolism and thrombosis of left iliac vein (2) Hypertension Qualifiers: Hypertension type: essential hypertension Qualified Code(s): I10 - Essential (primary) hypertension
[2018-05-13] MEDS ORDERED: *HR* Warfarin 7.5 MG TABLET PO SCH (18:00)
[2018-05-14 05:54] LABS: INR 2.6; Prothrombin Time 29.4 Seconds (9.4-12.1)
[2018-05-14 05:57] VITALS: BP 131/67
[2018-05-14] MEDS ORDERED: MOM Conc 10 ML UD.LIQ PO ONE (08:44)
[2018-05-14 09:51] LABS: Hematocrit 37.5 % (35.3-44.9); Mean Corpuscular Hemoglobin 26.4 pg (28.0-33.3); Mean Corpuscular Volume 82.4 fL (83.0-100.0); Mean Platelet Volume 10.9 fL (9.4-12.4); Platelet Count 218 K/mcL (140-400); Red Blood Count 4.55 M/mcL (3.82-4.97); Red Cell Distribution Width 13.2 % (11.5-14.5)
--- NOTE | 2018-05-14 11:25 | Discharge Summary ---
- NOTES TO OUTPATIENT PROVIDER Notes to Outpatient Provider: Keep follow-up appointment at Coumadin clinic on 05/16/2018-already scheduled. PT/INR on Wednesday. 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 Plan to discharge patient on Coumadin with a targeted INR of 2-3. INR on discharge 2.6 . Discussed with pharmacy about discharge dose of Coumadin and she advised 5 mg by mouth daily over the weekend and follow-up INR on Wednesday and further adjustment in the dose at Coumadin clinic on Wednesday. Seen in the left distal iliac, left common femoral, left superficial femoral and the left great saphenous above-knee on Doppler ultrasound. Patient has recurrent DVT. Due to high risk status with outpatient treatment failure and recurrent DVT patient was In the hospital on IV heparin drip until had 2 therapeutic INR. Patient will follow at Coumadin clinic and with hematology office as a scheduled. Qualifiers: Chronicity: acute Qualified Code(s): I82.422 - Acute embolism and thrombosis of left iliac vein (2) Hypertension Priority: Secondary Status: Chronic Assessment and Plan: Better blood pressure now. Will discharge patient on low dose of losartan and advised to monitor blood pressure with the help of PCP. Qualifiers: Hypertension type: essential hypertension Qualified Code(s): I10 - Essential (primary) hypertension (3) Obesity (BMI 30.0-34.9) Priority: Secondary Status: Chronic Assessment and Plan: Diet and exercise. life style modification. (4) Back muscle spasm Priority: Primary Status: Acute Assessment and Plan: Flexeril when necessary Hospital course: Ms. Hernandez is a 63 year old female patient with history of recurrent DVT got admitted for new onset of left lower extremity DVT. Please see details in diagnosis section of discharge summary. At the time of discharge patient is clinically and hemodynamically stable, ambulating and tolerating oral diet. Discharge discussed with: patient, other (Pharmacy) - Time Spent with Patient Total time spent providing and/or coordinating discharge services: - Discharge Medications Home Medications: Oxybutynin Chloride [Ditropan Xl] 5 mg PO DAILY 07/16/16 [History] Escitalopram [Lexapro] 20 mg PO DAILY 07/23/17 [History] Losartan Potassium [Cozaar] 25 mg PO DAILY 07/23/17 [History] Pantoprazole Sodium [Protonix] 40 mg PO DAILY 07/23/17 [History] Pramipexole Di-HCl [Pramipexole Dihydrochloride] 0.5 mg PO HS 05/06/18 [History] Turmeric Root Extract [Turmeric] 500 mg PO DAILY 05/06/18 [History] Warfarin [Coumadin] 5 mg PO SUTUWETHFR 05/06/18 [History] Warfarin [Coumadin] 7.5 mg PO MOSA 05/06/18 [History] Allergies/Adverse Reactions: 3 Allergy/AdvReac Type Severity Reaction Status Date / Time Sulfa (Sulfonamide AdvReac Nausea Verified 05/06/18 16:41 Antibiotics) Date of admission: 05/08/18 20:42 Primary care physician: Cindy Lester CNP Consults: 05/09/18 16:56 Consult to Anthropology Instructor [CONS] Routine Reason for Consult: can you please assist with referral to Coumadin Clinic in [facility] to allow for care closer to home-patient will still continue to see Dr. Christopher and the cancer center but will not need to travel to [place] for coumadin clinic thank you! Bebe - Constitutional Vitals: Temp Pulse Resp BP Pulse Ox 98.1 F 73 16 131/67 95 05/14/18 05:56 05/14/18 05:56 05/14/18 05:56 05/14/18 05:56 05/14/18 08:28 General appearance: Present: A&O X 3, answers questions appropriately Exam: General appearance: No acute distress, A&O X 3 Head exam: Atraumatic Eye exam: EOMI, PERRLA ENT exam: Moist oral mucosa Neck nontender, supple Respiratory exam: Clear to auscultation bilaterally Cardiovascular exam: Regular rate and rhythm, no systolic murmur Abdominal exam: Soft, nontender, nondistended, positive bowel sounds Extremities exam: No calf tenderness Neurological exam: Grossly intact cranial nerve II through XII, motor 5 x 5 in all extremities - Patient Status Disposition: Home, Self-Care Condition: Good Overall status at discharge: patient is progressing back to baseline - Discharge Instructions Follow Up With: Cindy Lester CNP [Primary Care Provider] - Additional Instructions: Appointment @ Coumadin clinic 05/16/18 @ 11:15am. - Diet and Activity Activity: increase activity as tolerated Diet: low fat, low cholesterol, low salt diet
== END 2018-05-14 12:53 | disposition home or self-care (01) | DRG 301 ==
LOC: 3NENU 13:16 → EMEROO 13:16 → 3NENU 17:58
PROVIDERS: ADMIT Internal Medicine; ATTEND Internal Medicine